=== PATIENT | male | born 1995 | race Two or more races ===

== ENCOUNTER 2022-06-07 10:31 | Emergency (ER) | payer OTHER ==
[2022-06-07 10:39] VITALS: PULSE 85; TEMP 98.2; BMI 23.7
[2022-06-07 12:14] VITALS: BP 113/73; RESP 15
== END 2022-06-07 12:14 | disposition home or self-care (01) ==
LOC: JER 10:31
DX: L02.412 Cutaneous abscess of left axilla (principal)
CPT/HCPCS: 99283-25

== ENCOUNTER 2024-03-25 15:36 | Emergency (ER) | payer OTHER ==
[2024-03-25 15:54] VITALS: BP 124/72; PULSE 69; RESP 18; TEMP 98; BMI 25.7
== END 2024-03-25 18:40 | disposition home or self-care (01) ==
LOC: JER 15:36
DX: M25.511 Pain in right shoulder (principal); M79.601 Pain in right arm; V29.99XA Rider (driver) (passenger) of other motorcycle injured in unspecified traffic accident, initial encounter
CPT/HCPCS: 99283-25